=== PATIENT | female | born 1985 | race Two or more races ===

== ENCOUNTER 2018-07-03 04:55 | Inpatient (IN) | payer MEDICAID, SELFPAY ==
[2018-07-03] VITALS (23 sets, daily range): BP systolic 89–118; BP diastolic 42–69; PULSE 59–87; RESP 15–100; TEMP 36.1–36.9; O2SAT 18–100; BMI 45.3
--- NOTE | 2018-07-03 05:14 | OP.PCM_ITS ---
Operative Report Date of Procedure: 07/03/18 Surgeon: Pavan Kessler MD, FACOG Business Control Manager: ALYSA Jose Anesthesia: Denilson Mason CRNA Anesthesia: Spinal with Duramorph Pre-op Diagnosis: Oligohydramnios, Prior Section, Desires Elective Sterilization, Diet-Controlled Gestational Diabetes Post-Op Diagnosis: Oligohydramnios, Prior Section, Desires Elective Sterilization, Diet-Controlled Gestational Diabetes Procedure: Repeat Low Transverse Cervical Caesarean Section, Bilateral Tubal Occlusion with Filshie Clips Findings: Viable female with Apgars of 8/9 weighing 6 lbs. 0 oz. in occiput anterior presentation with clear amniotic fluid and normal three-vessel placenta. Indication: This is a 32-year-old who presents for her second at 37+ weeks gestation. care has been eventful for diet-controlled gestational diabetes, a prior , desiring sterilization, and oligohydramnios. The patient has been counseled regarding the risk and indications of this procedure including the possibility of bleeding infection and injury to surrounding structures such as bowel bladder. The patient also understands the permanent nature of the tubal, the failure rate of 1-2%, and the availability of other nonpermanent control options. All questions were answered. Procedure: Patient was taken to the operating room where after spinal anesthesia was placed, the patient was prepped and draped in usual sterile fashion and a Sullivan catheter was placed. The abdomen was entered through the patient's prior Pfannenstiel incision and peritoneum was entered bluntly. After developing a bladder flap on the lower uterine segment a low transverse incision was made on the uterus and head was easily delivered onto the operative field the nose mouth and oropharynx were bulb suctioned. Subsequently a viable female was born with Apgars of/9. The infant was noted to cry move all extremities vigorously on the operative field. The umbilical cord was doubly clamped and ligated and infant handed to the nursery personnel who were present for the delivery. Placenta was delivered and noted to be 3 vessels and normal. Uterus was exteriorized and remaining placental tissue was removed. The uterus was then closed in 2 layers first with running locked 0 Vicryl suture followed by a second imbricating layer with 0 Vicryl suture. 0 Vicryl suture was then used in a horizontal mattress interrupted fashion to affect final hemostasis of the uterine incision line. Normal fallopian tubes and ovaries were visualized and Filshie clips were placed on each tube 1-2 cm from the uterine fundus. The uterus was returned to the pelvis. Hemostasis was noted and rectus abdominis muscles were reapproximated in the midline with interrupted Number 0 Vicryl suture in a horizontal mattress fashion. Fascia was closed with running Number 1 PDS Strata fix suture. Subcutaneous tissue was irrigated with copious amouts of saline solution and then closed with running 3-0 Vicryl suture. Skin was closed with 4-0 monocryl suture in a running subcuticular fashion. Steri strips, telfa, and tape were placed across the incision. The patient tolerated the procedure well and was taken to the recovery room in satisfactory condition. Sponge, needle, and instrument counts were all reportedly correct. EBL was less than 500 cc. Ancef 2 gms IV was given prior to the procedure. Spicemen to Pathology: None Complications: None
[2018-07-03] MEDS: Lactated Ringers 1,000 ML 999 ML IV (05:15)
--- NOTE | 2018-07-03 05:15 | PCM.DCCSEC ---
Discharge Diet: No Restrictions Discharge Activity: May not drive while taking narcotic pain medications., May Shower, May Take a Tub Bath May resume sexual activity in: 4-6 weeks Lifting Restrictions: 20 pounds Additional Activity Instructions:: Nothing in the vagina for 4-6 weeks. You may return to work/school in 6 weeks. Call your doctor if your incision/area has: Continuous Slow Oozing, Sudden Increased Bleeding, Increased Pain/ Swelling, Increased Redness, Foul Smelling Discharge Call your doctor if you observe: Fever of 101 or Higher, Inability to urinate, Inability to have a bowel movement, Using more than one pad per hour Additional Instructions: If you experience any of the following, contact your healthcare provider. Bleeding that soaks a pad every hour for 2 hours Unrelieved incision or abdominal pain Swelling, redness, discharge or bleeding from your incision or episiotomy site Your incision begins to separate Problems urinating (including inability to urinate or burning while urinating). Visual changes Severe headache Flu-like symptoms Pain or redness in one of both of your breasts Pain, warmth, tenderness or swelling in your legs, especially the calf area Frequent nausea and vomiting Symptoms of depression or anxiety If you experience any of the following, call 911 or go to the nearest Emergency Room. Chest pain Problems breathing Seizure activity Partial or complete paralysis of a body part, slurred speech, weakness or drooping of the face, or a sudden inability to walk or hold your balance Allergies/Adverse Reactions: Allergies No Known Allergies Allergy (Verified 07/03/18 05:09) Medications to take at Discharge Docusate Sodium [Colace] 100 mg PO BID PRN PRN #60 cap 07/03/18 Oxycodone [Oxyir] 5 mg PO Q6H PRN PRN 7 Days #20 tab 07/03/18 Vits [Prenatabs FA] 1 tablet PO DAILY 07/03/18 The following prescriptions were given: Oxycodone [Oxyir] 5 mg PO Q6H PRN PRN 7 Days #20 tab PRN Reason: Severe Pain (-08/05) Docusate Sodium [Colace] 100 mg PO BID PRN PRN #60 cap PRN Reason: Constipation Follow-Up: Call to make an appointment with your doctor for an incision check in 1-2 weeks. You will also need a 6 week post- follow up appointment. Test results from this visit will be discussed in further detail at your follow-up appointment, if applicable. Please Follow Up With: Pavan Kessler MD - [phone] When: Call to make an appointment for an incision check in 2 weeks. Primary Care Physician: Angelica Wilson MD [Primary Care Provider] -
[2018-07-03 05:45] LABS: Absolute Lymphocyte Count 1.95 X10^3/ul (0.83-4.51); Absolute Neutrophil Count 7.6 X10^3/uL (2.0-7.7); Basophil# 0.03 X10^3/uL; Basophil% 0.3 % (0-1); Eosinophil# 0.12 X10^3/uL; Eosinophils% 1.1 % (0-5); Hematocrit 35.5 % (37-47); Hemoglobin 12.4 g/dl (12.0-15.0); Lymphocyte # 1.95 X10^3/ul (4.0); Lymphocyte % 18.4 % (19-41); Mean Corp Hgb Conc 34.9 g/gl (32-36); Mean Corpuscular Hgb 31.6 pg (27.0-32.0); Mean Corpuscular Volume 90.3 fL (81-99); Mean Platelet Vol. 9.9 fl (6.2-12.0); Monocyte# 0.87 X10^3/uL; Monocyte% 8.2 % (0-10); Neutrophil # 7.59 X10^3/uL (2.7-7.7); Neutrophil % 71.6 % (47-70); Platelet Count 163 K/mm3 (150-450); RBC Distribution Width SD 42.6 fl (35.1-43.9); Red Blood Count 3.93 M/mm3 (4.2-5.4); White Blood Count 10.6 K/mm3 (4.4-11.0)
[2018-07-03 05:46] LABS: POSITIVE COUNT NO; POSITIVE DIFFERENTIAL NO; POSITIVE MORPHOLOGY NO
[2018-07-03 06:01] LABS: Bedside Glucose 87 mg/dL (70-110)
[2018-07-03] MEDS: Sodium Citrate/Citric Acid 30 ML UDC PO (06:45)
[2018-07-03] MEDS: Lactated Ringers 1,000 ML 150 ML IV ×2 (06:45→09:03)
[2018-07-03] MEDS: Cefazolin 2 GM in 0.9% Normal Saline 100 ML IV (07:05)
[2018-07-03] MEDS: Oxytocin 30 units/NS 500 ml 30 UNITS/500 ML IV.SOLN 167 UNITS IV (07:11)
[2018-07-03 08:28] LABS: Chlamydia Trachomatis by PCR Negative (Negative); Neisserai gonorrhoeae by PCR Negative (Negative); Probe Check PASS; Sample Adequacy Control PASS; Specimen Processing Control PASS
[2018-07-03] MEDS: Lactated Ringers 1,000 ML 100 ML IV ×2 (09:10→20:02)
[2018-07-03] MEDS: DiphenhydrAMINE 25 MG Capsule PO (10:18)
[2018-07-03] MEDS: Ketorolac 30 MG/ML Syringe IV ×2 (14:51→21:06)
[2018-07-03] MEDS: Cefazolin 1 GM/50 ML BAG IV ×2 (14:51→23:40)
--- NOTE | 2018-07-03 20:56 | NURSING ---
Egg size clot noted in pt. katina pad when katina care was provided. Uterus firm at U-1, small bleeding noticed in the pad. No trickle bleeding present. Vital signs stable. BP 104/56. Pulse 76. Temperature 98.4. SpO2 99%. Respirations 17. Will continue to monitor pt. bleeding.
[2018-07-04] VITALS (7 sets, daily range): BP systolic 93–129; BP diastolic 52–73; PULSE 72–86; RESP 15–18; TEMP 36.3–37.1; O2SAT 97–99
[2018-07-04] MEDS: Ketorolac 30 MG/ML Syringe IV ×4 (02:37→21:07)
[2018-07-04 05:32] LABS: Hematocrit 30.4 % (37-47); Hemoglobin 10.4 g/dl (12.0-15.0); Mean Corp Hgb Conc 34.2 g/gl (32-36); Mean Corpuscular Hgb 31.5 pg (27.0-32.0); Mean Corpuscular Volume 92.1 fL (81-99); Mean Platelet Vol. 9.6 fl (6.2-12.0); Platelet Count 135 K/mm3 (150-450); RBC Distribution Width CV 13.2 % (11.6-14.6); RBC Distribution Width SD 43.4 fl (35.1-43.9); Scan Indicated on CBC? Y/N NO; White Blood Count 7.8 K/mm3 (4.4-11.0)
--- NOTE | 2018-07-04 08:25 | PCM.PN.OB ---
Subjective: Doing well on POD#1. breast feeding. Bleeding light. Pain reasonably controlled. Tolerating PO Objective: Afeb VSS. Hgb 10.4 - Physical Exam General: Alert, Oriented x3, Cooperative, No apparent distress Lungs: Clear to auscultation, Normal air movement Cardiovascular: Regular rate, Regular Rhythm Abdomen: Soft, Non Tender, Non-Distended, - - Inicision dressing dry Extremities: No edema, No Calf Tenderness Skin: No rashes Neurological: Neuro grossly intact Psych/Mental Status: Normal Affect Comment: Lochia light Vital Signs Temp Pulse Resp BP Pulse Ox 97.9 F 80 18 105/59 L 98 //18 05:00 07/04/18 06:45 07/04/18 06:45 07/04/18 05:00 07/04/18 06:45 Oxygen Delivery Method Room Air Weight: 248 lb 0.321 oz Body Mass Index (BMI) 45.3 Intake and Output for Last 24 Hours 09/06/18 //18 //18 23:59 23:59 23:59 Intake Total 3283 / 3283 834 / 834 Output Total 800 / 800 1300 / 1300 Balance 2483 / 2483 -466 / -466 Laboratory Tests Past 24 Hrs //18 // 06:30 05:15 WBC 7.8 RBC 3.30 L Hgb 10.4 L Hct 30.4 L MCV 92.1 MCH 31.5 MCHC 34.2 RDW 13.2 RDW Differential 43.4 Plt Count 135 L MPV 9.6 Chlam trachomat DNA PCR Negative N.gonorrhoeae DNA (PCR) Negative Medical Necessity - Tobacco Use Smoking Status: Former smoker Assessment/Plan Doing well on POD#1 s/p C/S. D/C marquis today. Encourage OOB. Routine PO care.
[2018-07-04] MEDS: 0.9% Saline Lock 10 ML Syringe IV ×2 (09:10→15:20)
[2018-07-04] MEDS: Prenatal Vits Tablet 1 TABLET PO (09:10)
[2018-07-04] MEDS: Acetaminophen 500 MG Tablet 1000 MG PO (14:24)
[2018-07-05] MEDS: Ketorolac 30 MG/ML Syringe IV ×2 (03:11→09:23)
[2018-07-05] MEDS: 0.9% Saline Lock 10 ML Syringe IV ×2 (03:11→09:25)
[2018-07-05 03:18] VITALS: BP 122/75; PULSE 84; RESP 16; TEMP 36.8
--- NOTE | 2018-07-05 09:15 | PCM.PN.OB ---
Subjective: Some left lower abdominal pain but overall pain reasonably controlled with ibuprofen and oxycodone. Bleeding light. Objective: Afeb VSS - Physical Exam General: Alert, Oriented x3, Cooperative, No apparent distress Lungs: Clear to auscultation, Normal air movement Cardiovascular: Regular rate, Regular Rhythm Abdomen: Soft, Non Tender, Non-Distended, - - Fundus firm nontender, incision dressing dry Extremities: No edema Skin: No rashes Neurological: Neuro grossly intact Psych/Mental Status: Normal Affect Comment: Lochia light Vital Signs Temp Pulse Resp BP Pulse Ox 98.2 F 84 16 122/75 H 97 07/05/18 03:18 07/05/18 03:18 07/05/18 03:18 07/05/18 03:18 07/04/18 20:30 Oxygen Delivery Method Room Air Weight: 248 lb 0.321 oz Body Mass Index (BMI) 45.3 Intake and Output for Last 24 Hours 07/03/18 07/04/18 07/05/18 23:59 23:59 23:59 Intake Total 3283 / 3283 1052 / 1052 Output Total 800 / 800 2200 / 2200 Balance 2483 / 2483 -1148 / -1148 Medical Necessity - Tobacco Use Smoking Status: Former smoker Assessment/Plan Doing well on POD#2. Discharge instructions and warnings given.
--- NOTE | 2018-07-05 09:18 | PCM.DC.SUM ---
Discharge Date and Diagnosis Date of Admission: 07/03/18 Date of Discharge: 07/05/18 - Primary Discharge Diagnosis S/P repeat LTCS, bilateral tubal occlusion Hospital Course and Treatment Consultations 07/03/18 05:10 Consult: Anesthesia Routine Comment: Reason For Exam: REPEAT C/S Operations: - - Repeat LTCS and BTO Summary of Care Provided: The patient is a 32 year old F [admitted for repeat LTCS. Surgery performed without complication. Postoperative course unremarkable. Discharged home on POD #2.] Discharge Diet: No Restrictions Discharge Activity: May not drive while taking narcotic pain medications., May Shower, May Take a Tub Bath May resume sexual activity in: 4-6 weeks Additional Activity Instructions:: Nothing in the vagina for 4-6 weeks. You may return to work/school in 6 weeks. Call your doctor if your incision/area has: Continuous Slow Oozing, Sudden Increased Bleeding, Increased Pain/ Swelling, Increased Redness, Foul Smelling Discharge Call your doctor if you observe: Fever of 101 or Higher, Inability to urinate, Inability to have a bowel movement, Using more than one pad per hour Remove Dressing in (days):: 3 Cleanse incision/area with: Soap & Water Home Medications: Medications to take at Discharge Docusate Sodium [Colace] 100 mg PO BID PRN PRN #60 cap 07/03/18 Oxycodone [Oxyir] 5 mg PO Q6H PRN PRN 7 Days #20 tab 07/03/18 Vits [Prenatabs FA] 1 tablet PO DAILY 07/03/18 Ibuprofen 600 mg PO 4X/DAY #30 tab 07/05/18 Following Prescrptions Were Given to Patient: Oxycodone [Oxyir] 5 mg PO Q6H PRN PRN 7 Days #20 tab PRN Reason: Severe Pain (6-08/05) Docusate Sodium [Colace] 100 mg PO BID PRN PRN #60 cap PRN Reason: Constipation Ibuprofen 600 mg PO 4X/DAY #30 tab Primary Care Physician: Angelica Wilson MD [Primary Care Provider] - Please Follow Up With: Pavan Kessler MD - [phone] When: Call to make an appointment for an incision check in 2 weeks. Disposition: Home Minutes spent on discharge:: 15 Patient Condition:: Good Medical Necessity - Tobacco Use Smoking Status: Former smoker Meaningful Use Info Meaningful Use Diagnoses (Choose all that apply): None applicable
[2018-07-05] MEDS: Prenatal Vits Tablet 1 TABLET PO (09:23)
[2018-07-05 09:32] VITALS: BP 118/64; PULSE 76; RESP 14; TEMP 36.8
--- NOTE | 2018-07-05 09:59 | NURSING ---
[id number] Printed Rx for oxycodone, motrin, and stool softener given to patient. pt reports understanding of maternal and infant discharge instructions and denies further teaching
== END 2018-07-05 11:05 | disposition home or self-care (01) | DRG 371 ==
PROVIDERS: Admitting Provider Obstetrics & Gynecology; Family Provider Family Medicine; PCP Family Medicine; Visit Provider Obstetrics & Gynecology
PROC: 10D00Z1 Extraction of Products of Conception, Low, Open Approach (ICD-10-PCS; CPT 59514; principal; 2018-07-03 06:30)
DX: O41.03X0 Oligohydramnios, third trimester, not applicable or unspecified (principal); O34.211 Maternal care for low transverse scar from previous cesarean delivery; O24.420 Gestational diabetes mellitus in childbirth, diet controlled; Z30.2 Encounter for sterilization; Z87.891 Personal history of nicotine dependence; Z3A.37 37 weeks gestation of pregnancy; Z37.0 Single live birth
CPT/HCPCS: 82962; 85025; 85027; 86850; 86900; 87491; 87591; 99218; J7120; A4216; G0378; J2405